=== PATIENT | female | born 2000 ===

== ENCOUNTER 2020-10-06 20:10 | Outpatient (REF) | payer BC, SELFPAY ==
[2020-10-06 14:21] LABS: HCT 39.9 % (36.0-46.0); HGB 13.2 g/dL (11.2-15.7); MCH 29.8 pg (27.0-33.0); MCHC 33.1 % (32.0-36.0); MCV 90.1 fL (80-95); MPV 12.2 fL (8.0-11.0); Platelet Count 219 10^3/uL (130-400); RBC 4.43 10^6/uL (3.93-5.22); RDW 12.3 % (11.7-14.6); RDW-SD 41.1 fL; WBC 5.92 10^3/uL (4.4-10.8)
[2020-10-06 14:42] LABS: Glucose 81 mg/dL (74-106); TSH (W/Ref FT4) 1.89 uIU/mL (0.36-3.74)
== END 2020-10-06 20:11 | disposition home or self-care (01) ==
LOC: NCHCN 20:10
PROVIDERS: PCP Nurse Practitioner Family; Visit Provider Nurse Practitioner Family
DX: R53.83 Other fatigue (principal); Z13.1 Encounter for screening for diabetes mellitus
CPT/HCPCS: 82947; 85027; 84443

== ENCOUNTER 2021-08-01 14:46 | Outpatient (REF) | payer BC, SELFPAY ==
[2021-08-03 15:09] LABS: Chlamydia Result Negative (Negative); GC Result Negative (Negative)
== END 2021-08-01 14:47 | disposition home or self-care (01) ==
LOC: NCHCN 14:46
PROVIDERS: PCP Nurse Practitioner Family; Visit Provider Registered Nurse
DX: R39.9 Unspecified symptoms and signs involving the genitourinary system (principal); N89.8 Other specified noninflammatory disorders of vagina
CPT/HCPCS: 87491; 87591; 87086; 87480; 87510; 87660

== ENCOUNTER 2022-01-01 17:05 | Outpatient (REF) | payer BC, SELFPAY ==
[2022-01-01 21:12] LABS: HCT 40.3 % (36.0-46.0); HGB 13.3 g/dL (11.2-15.7); MCH 29.3 pg (27.0-33.0); MCV 89 fL (80-95); MPV 12.3 fL (8.0-11.0); Platelet Count 211 10^3/uL (130-400); RBC 4.54 10^6/uL (3.93-5.22); RDW 12.5 % (11.7-14.6); RDW-SD 41.1 fL; WBC 4.28 10^3/uL (4.4-10.8)
[2022-01-01 22:15] LABS: ALT 20 U/L (14-59); AST 16 U/L (15-37); Albumin 4.1 g/dL (3.4-5.0); Alkaline Phosphatase 63 U/L (46-116); Anion Gap 9.6 mmol/L (3-11); BUN 8 mg/dL (7-18); Bilirubin, Total 0.4 mg/dL (0.2-1.0); CO2 26.4 mmol/L (21.0-32.0); CREATININE 0.8 mg/dL (0.55-1.02); Calcium 8.8 mg/dL (8.5-10.1); Chloride 106 mmol/L (98-107); Folate > 20.0 ng/mL (8.6-20.0); Glucose 93 mg/dL (74-106); Potassium 4.2 mmol/L (3.5-5.1); Sodium 142 mmol/L (136-145); Total Protein 7.3 g/dL (6.4-8.2); Vitamin B12 455 pg/mL (193-986)
[2022-01-07 16:11] LABS: IgA 163 mg/dL (85-499); Interpretation (See Note); Tissue Transglutaminase IgA <1.2 U/mL (<4.0)
[2022-01-07 16:30] LABS: Helicobacter pylori Ag, Feces Negative (Negative)
== END 2022-01-01 17:06 | disposition home or self-care (01) ==
LOC: NCHCN 17:05
PROVIDERS: PCP Nurse Practitioner Family; Visit Provider Nurse Practitioner Family
DX: K30 Functional dyspepsia (principal)
CPT/HCPCS: 80053; 82784; 83516; 85027; 87338; 82607; 82746